=== PATIENT | male | born 1960 | race Caucasian/White ===

== ENCOUNTER 2022-03-19 17:30 | Observation (INO) | payer OTHER ==
[~2022-03-19] VITALS: Ht 180.3 cm; Wt 97.3 kg
[~2022-03-19 17:30] MED LIST: ASPI325 PO; ATEN50 PO; ATORVASTATIN CA20 MG; CIPR500 PO; GLUC500; LISI5; LISI5 PO; LISINOPRIL 20 MG TAB; LISINOPRIL-? DOSE; METF500C PO; METO100ER; METR500 PO; Multiple Vitam1 EAC1 PO; NAPR500 PO; NAPR500EC PO; Nitrostat0.4 MG SL; OXYC1TAB11 PO; SERT50 PO; TADA10TA; Toprol Xl200 MG; Voltaren100 GM TOP; ZESTORETIC 20-121 EA PO
[2022-03-19 18:18] LABS: BASOPHILS ABSOLUTE AUTO 0.05 K/mm3 (0.00-0.23); BASOPHILS PERCENT AUTO 0 % (0-2); EOSINOPHILS PERCENT AUTO 0 % (0-6); Hematocrit 45.3 % (37.0-53.0); Hemoglobin 16.1 g/dL (13.5-17.5); IMMATURE GRAN ABSOLUTE AUTO 0.08 K/mm3 (0.00-0.10); IMMATURE GRAN PERCENT AUTO 1 % (0-1); LYMPHOCYTES ABSOLUTE AUTO 1.51 K/mm3 (0.84-5.20); LYMPHOCYTES PERCENT AUTO 13 % (21-46); MONOCYTES ABSOLUTE AUTO 0.67 K/mm3 (0.16-1.47); MONOCYTES PERCENT AUTO 6 % (4-13); Mean Corpuscular HGB 30.6 pg (26.0-34.0); Mean Corpuscular HGB Conc 35.5 g/dL (31.5-36.5); Mean Corpuscular Volume 86 fL (80-100); Mean Platelet Volume 10.4 fL (9.1-12.4); NEUTROPHILS ABSOLUTE AUTO 9.72 K/mm3 (1.96-9.15); NEUTROPHILS PERCENT AUTO 81 % (41-73); Platelet Count 254 K/mm3 (150-400); RDW Coefficient Variation 12.1 % (11.7-14.2); RDW Standard Deviation 38.4 fL (35.1-46.3); Red Blood Cell Count 5.27 M/mm3 (4.30-5.90); White Blood Cell Count 12.03 K/mm3 (4.00-11.30)
[2022-03-19 18:49] LABS: Albumin, Blood 3.8 g/dL (3.4-5.0); Bun/Creatinine Ratio 13.7 (12.0-20.0); Calcium, Blood 9.3 mg/dL (8.5-10.1); Creatinine, Blood 1.02 mg/dL (0.60-1.20); Potassium, Blood 4.4 mmol/L (3.5-5.5); Total Protein, Blood 7.8 g/dL (6.4-8.2)
[2022-03-19 20:51] LABS: Source, Urine Clean Catch
[2022-03-19 21:03] LABS: Appearance, Urine Clear (Clear); Bilirubin, Urine Neg (Neg); Blood, Urine 1+ (Neg); Color, Urine Yellow (P-Yellow); Glucose Qualitative, Urine 4+ (Neg); Ketones, Urine 3+ (Neg); Leukocyte Esterase, Urine Neg (Neg); Nitrite, Urine Neg (Neg); Protein, Urine 2+ (Neg); Urobilinogen, Urine NORM (Normal)
[2022-03-19 21:07] LABS: Bacteria Not Seen /hpf; Red Blood Cells, Urine 0-2 /hpf (0-2); Squamous Epithelial Cells Not Seen /hpf (Few); White Blood Cells, Urine Not Seen /hpf (0-5)
[2022-03-19 21:13] LABS: U Amphetamine Screen Not Detected; U Barbituate Screen Not Detected; U Benzodiazapine Screen Not Detected; U Buprenorphine Screen Not Detected; U Cannabinoids Screen Not Detected; U Cocaine Screen Not Detected; U Methadone Screen Not Detected; U Methamphetamine Screen Not Detected; U Opiates Screen Not Detected; U Oxycodone Screen Not Detected; U Phencyclidine Screen Not Detected; U Propoxyphene Screen Not Detected
[2022-03-19 21:35] LABS: Influenza A, PCR NEGATIVE (NEGATIVE); Influenza B, PCR NEGATIVE (NEGATIVE); Resp Syncytial Virus, PCR NEGATIVE (NEGATIVE); SARS-Cov-2 (COVID-19) PCR, MMC NEGATIVE (NEGATIVE)
[2022-03-19 23:29] LABS: CHOL/HDL RATIO 6.2; Cholesterol 225 mg/dL (50-200); HDL Cholesterol 36 mg/dL (>39); LDL/HDL RATIO 4.4; Low Density Lipoprotein Chol 158 mg/dL (0-110); Triglycerides 156 mg/dL (30-160); Very Low Density Lipoprot Chol 31 mg/dL (6-32)
--- NOTE | 2022-03-20 00:35 | NUR ---
TRANSFER NOTE RECEIVED REPORT FROM GATO CUNNINGHAM RN, PT SOON BROUGHT TO PCU 6 FROM THE ER. SEE ADMISSION ASSESSMENT FOR DETAILS ON PT'S CONDITION UPON ARRIVAL. ALL QUESTIONS ANSWERED, WILL REVIEW ORDERS
[2022-03-20 01:05] LABS: BASOPHILS ABSOLUTE AUTO 0.04 K/mm3 (0.00-0.23); BASOPHILS PERCENT AUTO 0 % (0-2); EOSINOPHILS PERCENT AUTO 0 % (0-6); Hemoglobin 16.3 g/dL (13.5-17.5); IMMATURE GRAN ABSOLUTE AUTO 0.08 K/mm3 (0.00-0.10); IMMATURE GRAN PERCENT AUTO 1 % (0-1); LYMPHOCYTES ABSOLUTE AUTO 1.99 K/mm3 (0.84-5.20); LYMPHOCYTES PERCENT AUTO 13 % (21-46); MONOCYTES ABSOLUTE AUTO 0.76 K/mm3 (0.16-1.47); MONOCYTES PERCENT AUTO 5 % (4-13); Mean Corpuscular HGB 30.3 pg (26.0-34.0); Mean Corpuscular HGB Conc 35.4 g/dL (31.5-36.5); Mean Corpuscular Volume 86 fL (80-100); Mean Platelet Volume 10.4 fL (9.1-12.4); NEUTROPHILS ABSOLUTE AUTO 12.97 K/mm3 (1.96-9.15); NEUTROPHILS PERCENT AUTO 82 % (41-73); Platelet Count 255 K/mm3 (150-400); RDW Coefficient Variation 12.2 % (11.7-14.2); RDW Standard Deviation 38.1 fL (35.1-46.3); Red Blood Cell Count 5.38 M/mm3 (4.30-5.90); White Blood Cell Count 15.84 K/mm3 (4.00-11.30)
[2022-03-20 01:17] LABS: Glucose, Blood 463 mg/dL (70-99)
[2022-03-20 01:19] LABS: Bun/Creatinine Ratio 13.8 (12.0-20.0); Calcium, Blood 9.4 mg/dL (8.5-10.1); Creatinine, Blood 0.94 mg/dL (0.60-1.20)
--- NOTE | 2022-03-20 04:51 | NUR ---
SHIFT SUMMARY RECEIVED PT FROM ER AROUND 0035 THIS AM INTO PCU 6. PT IS A/Ox4 AND IS COOPERATIVE WITH CARE PROVIDED BY MEMBERS OF STAFF. DOES HAVE ISSUES WITH [facility] FOR HE OFTEN ASKS STAFF TO REPEAT QUESTIONS AND OCCASIONALLY REPEATS INFORMATION/STORIES ABOUT HIS FAMILY. CARDIAC TAFOYA, HR REMAINS IN SR RUNNING IN THE UPPER 90'S T/O THE NIGHT. PT REPORTED CHEST PRESSURE WHILE IN THE, BUT HAS NOT REPORT ANY SINCE BEING ADMITTED TO PCU. MAINTAINS SPO2 >94% ON RA WITH NO SOB OR DYSPNEA NOTED. PT IS ABLE TO INDEPENDENTLY VOID/USE THE RESTROOM . CBG WERE IN THE 500'S, BUT HAS CONTINUED TO DROP INTO THE 300'S, BUT HAS BEEN MANAGED VIA EMAR. NO NEW ORDERS AT THIS TIME. VSS, NADN T/O THE SHIFT
--- NOTE | 2022-03-20 07:23 | NUR ---
NURSING PCU DAYSHIFT: Assumed care of pt at approx 0700. A/O, pleasant, cooperative w/care. Denies any pain/discomfort at rest. Ambulates independently and w/o difficulty. Limited ROM of L shoulder d/t recent sx. Skin intact w/no breakdown noted. Tele in place, NSR/ST, no c/o CP/pressure, SBP 164 prior to a.m. meds, no noted edema. L/S cta t/o, O2 sat upper 90's on RA, denies dyspnea, no noted cough. Abd SNT, BT+, voiding w/o difficulty per pt. PIV x1, s/l. Pt denies any current needs though has adamantly expressed desire for discharge this a.m. No s/s of acute distress. Awaiting rounding from PMD, call light in reach, cont to monitor for any changes.
--- NOTE | 2022-03-20 09:16 | NUR ---
NURSING PCU DISCHARGE SUMMARY: No significant changes noted t/o the a.m. Seen by PMD, discharge home d/o received. Rx's faxed to [facility] per pt request. Pt verbalized understanding of all written and verbal discharge instructions. PIV dc'd w/cath intact. Ambulated from unit accompanied by PCT, no s/s of acute distress, pt denied any questions/needs. Discharge completed at 0913.
== END 2022-03-20 09:16 | disposition home or self-care (01) ==
LOC: ER 17:30 → ERHOLD 17:31 → PCU 03-20 00:35
PROVIDERS: Emergency Medicine; Physician Assistant; ADMIT Family Medicine
DX: I16.0 Hypertensive urgency (principal); E87.1 Hypo-osmolality and hyponatremia; Z86.73 Personal history of transient ischemic attack (TIA), and cerebral infarction without residual deficits; I25.10 Atherosclerotic heart disease of native coronary artery without angina pectoris; Z95.1 Presence of aortocoronary bypass graft; E78.5 Hyperlipidemia, unspecified; E11.65 Type 2 diabetes mellitus with hyperglycemia; D72.829 Elevated white blood cell count, unspecified; Z79.84 Long term (current) use of oral hypoglycemic drugs; Z79.82 Long term (current) use of aspirin; Z20.822 Contact with and (suspected) exposure to COVID-19
CPT/HCPCS: 0241U; 36415; 70450; 71045; 71260; 80048; 80053; 80061; 81001; 82947; 83036; 84443; 84484; 85025; 85379; 93005; 93010; 96374-59; 99285-25; A9270; G0378; J1815; Q9967